=== PATIENT | female | born 1955 | race Caucasian/White ===

== ENCOUNTER → 2018-06-10 | Outpatient (CLI) | payer BC ==
[~2018-06-10] MED LIST: ASPI-1181 PO; CLOP75TA32 PO; FURO20TA4 PO; IBUP-2077 PO; LEVO25TA54 PO; LORA0.5T2 PO; METO-408 PO; MONT10TA24 PO; ROSU10TA27 PO
== END | disposition home or self-care (01) ==
LOC: RAH 12:40
PROVIDERS: ATTEND Family Medicine
DX: M47.816 Spondylosis without myelopathy or radiculopathy, lumbar region (principal); M48.061 Spinal stenosis, lumbar region without neurogenic claudication; M51.26 Other intervertebral disc displacement, lumbar region; M41.86 Other forms of scoliosis, lumbar region
CPT/HCPCS: 72148

== ENCOUNTER 2018-07-29 05:38 | Inpatient (IN) | payer BC | END 2018-07-30 12:43 | disposition home or self-care (01) | LOC: DAHIP 05:38 → 4AH 12:00 | PROC: 01NB0ZZ Release Lumbar Nerve, Open Approach (ICD-10-PCS; principal; 2018-07-29 07:30) | PROC: 0ST20ZZ Resection of Lumbar Vertebral Disc, Open Approach (ICD-10-PCS; 2018-07-29 07:30) | DX: M48.061 Spinal stenosis, lumbar region without neurogenic claudication (principal) ==

== ENCOUNTER → 2019-01-14 | Outpatient (CLI) | payer BC ==
[~2019-01-14] MED LIST changes: +BI EST TP; -CLOP75TA32 PO; +EZET10TA48 PO; -IBUP-2077 PO; +ISOS30TA6 PO; -LORA0.5T2 PO; -METO-408 PO; -MONT10TA24 PO; +PROGESTERONE PO; -ROSU10TA27 PO; +THYR32.4 PO
[2019-01-14 16:09] LABS: CREATININE 0.8 mg/dL (0.5-1.5)
== END | disposition home or self-care (01) ==
LOC: LAB 15:25
PROVIDERS: ATTEND Neurological Surgery
DX: M54.16 Radiculopathy, lumbar region (principal)
CPT/HCPCS: 36415; 82565; 84520

== ENCOUNTER → 2019-02-01 | Outpatient (CLI) | payer BC ==
[~2019-02-01] MED LIST changes: +GADODIAMIDE 10 MMOL/20 ML VIAL IV ONE
== END | disposition home or self-care (01) ==
LOC: RAH 07:32
PROVIDERS: ATTEND Neurological Surgery
DX: M47.26 Other spondylosis with radiculopathy, lumbar region (principal); M41.86 Other forms of scoliosis, lumbar region; M51.26 Other intervertebral disc displacement, lumbar region
CPT/HCPCS: 72158; A9579

== ENCOUNTER → 2019-07-21 | Outpatient (CLI) | payer BC ==
[~2019-07-21] MED LIST changes: -GADODIAMIDE 10 MMOL/20 ML VIAL IV ONE
== END | disposition home or self-care (01) ==
LOC: SHCH 09:48
PROVIDERS: ATTEND Internal Medicine Cardiovascular Disease
DX: I10 Essential (primary) hypertension (principal); I25.10 Atherosclerotic heart disease of native coronary artery without angina pectoris; R60.9 Edema, unspecified
CPT/HCPCS: 93306; 93356; 93970

== ENCOUNTER → 2019-07-26 | Outpatient (CLI) | payer BC ==
[~2019-07-26] MED LIST changes: -ASPI-1181 PO; +ASPI-1443 PO; +REGADENOSON 0.4 MG/5 ML PF SYG IVP SCH
== END | disposition home or self-care (01) ==
LOC: SHCH 07:45
PROVIDERS: ATTEND Internal Medicine Cardiovascular Disease
DX: I10 Essential (primary) hypertension (principal); I25.10 Atherosclerotic heart disease of native coronary artery without angina pectoris
CPT/HCPCS: 78452; 93017; A9500 ×2; J2785; 96374

== ENCOUNTER → 2022-10-15 | Outpatient (CLI) | payer MEDICARE ==
[~2022-10-15] MED LIST changes: -ISOS30TA6 PO; +ISOS30TA92 PO; -REGADENOSON 0.4 MG/5 ML PF SYG IVP SCH
[2022-10-15 16:06] LABS: POTASSIUM 4.1 mmol/L (3.5-5.1)
== END | disposition home or self-care (01) ==
LOC: LAB 11:20
PROVIDERS: ATTEND Physician Assistant
DX: I25.10 Atherosclerotic heart disease of native coronary artery without angina pectoris (principal)
CPT/HCPCS: 36415; 80048; 83735; 83880

== ENCOUNTER → 2022-10-28 | Outpatient (CLI) | payer MEDICARE ==
[~2022-10-28] MED LIST changes: +IOHEXOL 350 MG/ML 100ML INFUS..BTL IV ONE
== END | disposition home or self-care (01) ==
LOC: RAH 09:37
PROVIDERS: ATTEND Internal Medicine Cardiovascular Disease
DX: I25.10 Atherosclerotic heart disease of native coronary artery without angina pectoris (principal); K44.9 Diaphragmatic hernia without obstruction or gangrene; M47.815 Spondylosis without myelopathy or radiculopathy, thoracolumbar region
CPT/HCPCS: 75574; Q9967

== ENCOUNTER → 2022-10-30 | Outpatient (CLI) | payer MEDICARE ==
[~2022-10-30] MED LIST changes: -IOHEXOL 350 MG/ML 100ML INFUS..BTL IV ONE
[2022-10-30 12:47] LABS: CHOLESTEROL 238 mg/dL (<200); HDL CHOLESTEROL 101 mg/dL (35-85); LDL DIRECT 131 mg/dL (0-99); TRIGLYCERIDES 44 mg/dL (30-200)
== END | disposition home or self-care (01) ==
LOC: LAB 08:11
PROVIDERS: ATTEND Internal Medicine Cardiovascular Disease
DX: I25.10 Atherosclerotic heart disease of native coronary artery without angina pectoris (principal)
CPT/HCPCS: 36415; 80061

== ENCOUNTER → 2022-11-18 | Outpatient (CLI) | payer MEDICARE | END | disposition home or self-care (01) | LOC: SHCH 09:31 | PROVIDERS: ATTEND Internal Medicine Cardiovascular Disease | DX: I70.223 Atherosclerosis of native arteries of extremities with rest pain, bilateral legs (principal); R00.1 Bradycardia, unspecified; E78.5 Hyperlipidemia, unspecified | CPT/HCPCS: 93306; 93925 ==

== ENCOUNTER → 2023-07-16 | Outpatient (CLI) | payer MEDICARE ==
[2023-07-16 10:48] LABS: CHOLESTEROL 247 mg/dL (<200); HDL CHOLESTEROL 108 mg/dL (35-85); LDL DIRECT 132 mg/dL (0-99); TRIGLYCERIDES 43 mg/dL (30-200)
== END | disposition home or self-care (01) ==
LOC: LAB 09:29
PROVIDERS: ATTEND Internal Medicine Cardiovascular Disease
DX: I25.10 Atherosclerotic heart disease of native coronary artery without angina pectoris (principal); R94.39 Abnormal result of other cardiovascular function study; Z79.899 Other long term (current) drug therapy
CPT/HCPCS: 36415; 80061

== ENCOUNTER 2024-04-01 09:33 | Emergency (ER) | payer MEDICARE ==
[~2024-04-01] VITALS: Ht 167.6 cm; Wt 102.1 kg
--- NOTE | 2024-04-01 09:40 | ERN ---
General Chief Complaint: Back Pain-No Injury Stated Complaint: CHRONIC BACK PAIN Time Seen by MD: 09:36 History of Present Illness Initial Comments 68-year-old female who presents for back pain beginning yesterday. She reports feeling a pressure and a tearing sensation to her right flank area. She says the pain comes and goes. It does increase with movement. She was unsure if she strained her back or not. She denies any paresthesias or anesthesias. Denies any vomiting diarrhea dysuria or systemic illness. She reports significant pain. Vital signs are stable. Brought in by EMS from home. She does have a surgical history of lumbar spine surgery in 2019. She reports she has not had complications since. 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 She uses a cane to walk. She was ambulatory on scene per EMS. Allergies: Coded Allergies: codeine (Unverified Allergy, Severe, ANAPHYLACTIC SHOCK, 07/23/18) Penicillins (Unverified Allergy, Unknown, ANAPHYLACTIC SHOCK, 07/23/18) propoxyphene (Verified Allergy, Unknown, 07/22/19) Home Meds Reported Medications [Bi-Est Cream] No Conflict Check, 0.5 ML TP AM 07/23/18 Ezetimibe (Ezetimibe) 10 Mg Tablet, 10 MG PO AM, TAB 07/23/18 Thyroid,Pork (Nature-Throid) 32.5 Mg Tablet, 32.5 MG PO AM, TAB 07/23/18 Isosorbide Mononitrate (Isosorbide Mononitrate ER) 30 Mg Tab.er.24h, 30 MG PO AM, TAB 07/23/18 [Progesterone] No Conflict Check, 15 MG PO HS 07/23/18 Aspirin (Aspirin EC) 81 Mg Tablet.dr, 81 MG PO DAILY, TAB 06/13/16 Levothyroxine Sodium (Levothyroxine Sodium) 25 Mcg Tablet, 25 MCG PO DAILY, TAB 06/13/16 Furosemide (Furosemide) 20 Mg Tablet, 20 MG PO DAILY, TAB 06/13/16 ROS Dictation CONSTITUTIONAL: No chills, no fever, no weakness, no diaphoresis, no malaise. HEAD/FACE: No signs of trauma. EENT: No eye pain, no blurred vision, no tearing, no double vision, no ear pain, no ear discharge, no nose pain, no nasal congestion, no throat pain, no throat swelling, no mouth pain. RESPIRATORY: No cough, no orthopnea, no SOB, no stridor, no wheezing. CARDIOVASCULAR: No chest pain, no edema, no palpitations, no syncope. GASTROINTESTINAL/ABDOMINAL: No abdominal pain, no constipation, no diarrhea, no nausea, no vomiting. GENITOURINARY: No abnormal discharge, no dysuria, no frequent urination, no hematuria. No complaints of pain in the genitals. MUSCULOSKELETAL: Right back and flank pain INTEGUMENTARY: No change in color, no change in hair/nails, no dryness, no l esion, no lumps, no rash. NEUROLOGICAL/PSYCH: No anxiety, not depressed, no emotional problem, no headache, no numbness, no pre-existing deficit, no history of seizures, no tremors, no weakness. HEMATOLOGIC/LYMPHATIC: Not anemic, no history of blood clots, no apparent bleeding, no bruising, glands not swollen. All Systems Negative, Except as Noted. Physical Exam Physical Exam Dictation VITAL SIGNS: Reviewed. GENERAL APPEARANCE: Alert, oriented x3, no acute distress, obese. HEAD AND FACE: Non-traumatic. EYES: PERRL, pink conjunctivas, eyelid no trauma, anterior chamber clear. EARS: Pinnas intact and no signs of trauma or erythema. Ear canals clear and no discharge. TMs no erythema. NOSE: No discharge, no bleeding. OROPHARYNX: Mouth normal, teeth no caries, tongue pink. Pharynx clear, no erythema. Tonsils no exudates, no abscesses noted. Mucous membrane moist. NECK: Supple, non-tender, no thyromegaly, no masses, no JVD, no bruits. BREAST: Deferred. CHEST: No tenderness, no crepitus, no paradoxical movement, no retractions. LUNGS: Clear, well-ventilated, symmetric, no rales, no wheezing, no rhonchi, no stridor, good breath sounds bilaterally. HEART: Regular rate, regular rhythm, no murmur, no gallops. VASCULAR: No peripheral edema. ABDOMEN: Soft, positive bowel sounds, nondistended, no guarding, nontender, no rebound, no masses no hepatomegaly, no splenomegaly, no Walker's sign, no hernias. RECTAL: Deferred. GENITAL: Deferred. NEUROLOGICAL: Normal speech, gross motor function intact, gross sensory function intact. MUSCULOSKELETAL: Neck nontender, full range of motion, back nontender, full range of motion. EXTREMITIES: Nontender, full range of motion. SKIN: Color pink, dry, no turgor, no rash, no lacerations, no abrasions, no contusions. LYMPHATICS: Deferred. Results Laboratory and Microbiology Lab and Micro Result Laboratory Tests Test 04/01/24 09:45 04/01/24 12:45 04/01/24 13:50 White Blood Count 6.4 K/uL (4.8-10.8) Red Blood Count 4.53 MIL/uL (4.00-5.50) Hemoglobin 13.4 g/dL (12.0-16.0) Hematocrit 38.4 % (36-48) Mean Corpuscular Volume 84.8 fL (79-99) Mean Corpuscular Hemoglobin 29.6 pg (27.0-33.0) Mean Corpuscular Hemoglobin Concent 34.9 g/dL (32.0-36.0) Red Cell Distribution Width 12.6 % (11.0-15.5) Platelet Count 340 K/uL (130-400) Mean Platelet Volume 9.1 fL (7.5-10.5) Immature Granulocyte % (Auto) 0.2 % (0-1) Neutrophils (%) (Auto) 73.6 % (40.0-77.0) Lymphocytes (%) (Auto) 17.2 % (21.0-51.0) L Monocytes (%) (Auto) 8.0 % (3.0-13.0) Eosinophils (%) (Auto) 0.5 % (0.0-8.0) Basophils (%) (Auto) 0.5 % (0.0-5.0) Neutrophils # (Auto) 4.7 K/uL (1.8-7.7) Lymphocytes # (Auto) 1.1 K/uL (1.0-4.8) Monocytes # (Auto) 0.5 K/uL (0.1-1.0) Eosinophils # (Auto) 0.03 K/uL (0.00-0.70) Basophils # (Auto) 0.03 K/uL (0.00-0.20) Absolute Immature Granulocyte (auto 0.01 K/uL (0-1) Nucleated Red Blood Cells 0.0 % (0.0-0.19) Sodium Level 130 mmol/L (136-145) L Potassium Level 4.2 mmol/L (3.5-5.1) Chloride Level 97 mmol/L (101-111) L Carbon Dioxide Level 22 mmol/L (21-32) Blood Urea Nitrogen 13 mg/dL (7-18) Creatinine 0.9 mg/dL (0.5-1.0) Glomerular Filtration Rate Calc 71 mL/min (>90) Random Glucose 129 mg/dL (70-105) H Total Calcium 9.1 mg/dL (8.5-10.1) Total Creatine Kinase 116 U/L (21-232) 82 U/L (21-232) # Troponin I High Sensitivity 5.4 ng/L (4-50) 7 ng/L (4-50) B-Type Natriuretic Peptide 54 pg/mL (0-100) Urine Color YELLOW (YELLOW) Urine Appearance CLOUDY (CLEAR) H Urine pH 8.5 (5.0-8.0) H Urine Specific [place] 1.016 (1.001-1.031) Urine Protein NEGATIVE mg/dL (NEGATIVE) Urine Glucose (UA) NEGATIVE mg/dL (NEGATIVE) Urine Ketones NEGATIVE mg/dL (NEGATIVE) Urine Occult Blood NEGATIVE (NEGATIVE) Urine Nitrate NEGATIVE (NEGATIVE) Urine Bilirubin NEGATIVE mg/dL (NEGATIVE) Urine Urobilinogen 0.2 mg/dL (0.2-1.0) Urine Leukocyte Esterase NEGATIVE Stacy/uL Urine RBC 2-5 /HPF (0-1) H Urine WBC 11-25 /HPF (0-1) H Urine Squamous Epithelial Cells RARE /HPF (0-2) Urine Other Crystals (Auto) 21 /HPF (None Seen) Urine Bacteria RARE /HPF (None Seen) Urine Yeast FEW /HPF (None Seen) MDM CC: Back pain Historian: Patient Comorbidities: History of kidney infections, ID, stroke, back surgeries Limitations by social determinants of health: None Differential diagnosis: MSK pain, kidney disease, other. Vital signs: Stable, remained stable here in the ER. Labs ( Independently interpreted by me ): CBC is normal. BMP shows mild dehydration otherwise unremarkable. Glucose stable. Creatinine stable. Troponin x2 stable. BNP stable. CK is stable. Urinalysis: Unremarkable. CXR (independently interpreted by me ): Normal. No focal infiltrates, cardiomegaly, or other abnormality. CT abdomen and pelvis without contrast (independently interpreted by me ): No signs of kidney stone or major bony abnormality. Radiology report shows sigmoid diverticulosis without diverticulitis, otherwise normal exam to the right side of the abdomen. Treatment in the ER: Patient received IV Dilaudid for pain control, IV Toradol, Reglan. Re-evaluation. Pain has a improved. Please note there was a delay in care because on the re-evaluation the patient reported that she had some other complaints and was requesting a cardiac workup including troponins EKG and a BNP. She did not have any current chest d iscomfort, but the family was worried that recently she did have some mild dyspnea. I did oblige and get these studies which were all normal. We also waiting on the urinalysis for quite some time. Patient was discharged in stable condition. I do not see any red flags for back pain. There is no neurovascular compromise, no motor dysfunction. No incontinence. No midline tenderness. No other red flags. We will discharge with pain control and recommend PCP follow up. ED Course Orders Procedure Category Date Status Time Cardiac Panel LAB 04/01/24 Complete 09:36 Cbc With Differential LAB 04/01/24 Complete 09:36 Basic Metabolic Panel LAB 04/01/24 Complete 09:36 Urinalysis Profile LAB 04/01/24 Complete 09:36 Hydromorphone 0.5mg PHA 04/01/24 Complete Syg (Dilaudid 0.5mg 10:00 Ketorolac PHA 04/01/24 Complete Tromethamine 15mg/Ml 10:00 Ct Abdomen/Pelvis W/O CT 04/01/24 Resulted Contrast 10:17 Metoclopramide 10 PHA 04/01/24 Complete Mg/2 Ml Vial (Reglan 1 12:00 B-Type Natriuretic LAB 04/01/24 Complete Peptide 12:17 Troponin I High LAB 04/01/24 Complete Sensitivity 12:17 Chest 1vw RAD 04/01/24 Resulted 12:17 12 Lead Ekg Tracing- EKG 04/01/24 Complete Technical 12:17 Creatine Kinase, Total LAB 04/01/24 Complete 12:18 Culture Urine VALERIY 04/01/24 Logged 14:42 Current Medications Medications (Trade) Dose Ordered Sig/Alberto Route PRN Reason Start Time Stop Time Status Last Admin Dose Admin Hydromorphone HCl (DiLAUDid 0.5MG INJ) 0.5 mg ONCE ONCE IVP 04/01/24 10:00 04/01/24 10:01 DC 04/01/24 10:03 Ketorolac Tromethamine (toRADol) 15 mg ONCE ONCE IV 04/01/24 10:00 04/01/24 10:01 DC 04/01/24 10:30 Metoclopramide HCl (regLAN 10MG IV) 10 mg ONCE ONCE IVP 04/01/24 12:00 04/01/24 12:01 DC 04/01/24 12:01 Vital Signs Date Time Temp Pulse Resp B/P (MAP) Pulse Ox O2 Delivery O2 Flow Rate FiO2 04/01/24 14:05 98.1 70 14 142/70 99 Room Air* 0 21 04/01/24 13:00 77 14 146/66 98 Room Air* 0 21 04/01/24 12:00 78 14 148/68 98 Room Air* 0 21 04/01/24 11:00 98.1 71 14 148/68 98 Room Air* 0 21 04/01/24 10:34 98.1 77 14 141/66 98 Room Air* 0 21 04/01/24 10:20 98.1 70 16 150/67 98 Room Air* 0 21 04/01/24 09:34 98.2 83 16 114/48 99 Room Air 0 DX & DISP Disposition: Discharge Departure Impression: Primary Impression: Lower back pain Additional Impression: Mild dehydration Condition: Stable Scripts Meloxicam (Meloxicam) 15 Mg Tablet 15 MG PO DAILY PRN for PAIN for 10 Days, #10 TAB Prov: DOMINIK RANDOLPH DO 04/01/24 Hydrocodone/Acetaminophen (Hydrocodon-Acetaminophen 5-325) 5 Mg-325 Mg Tablet 1 TAB PO Q4HPRN PRN for pain for 5 Days, #30 TAB 0 Refills Prov: DOMINIK RANDOLPH DO 04/01/24 Orphenadrine Citrate (Norflex) 100 Mg Srtab 100 MG PO BID for back spasm, #20 TAB.SR Prov: DOMINIK RANDOLPH DO 04/01/24 Additional Instructions: Your symptoms are consistent with musculoskeletal back pain. Your vital signs have been stable here in the ER. Your lab work (CBC, BMP, CK, troponin x2, BNP, urinalysis) is unremarkable. Your chest x-ray, and the CT scan of the abdomen and pelvis without contrast shows no acute abnormalities. Of note, your cardiac workup (EKG, chest x-ray, troponin, BNP) is unremarkable. You received IV Dilaudid, Toradol, and Reglan here in the ER. I have prescribed multiple pain medications for your back pain. These include meloxicam, which you can take once per day. [place] tabs which you can take up to 3 times a day as needed for severe pain. Norflex, which is a muscle relaxant, which you can take twice per day as needed. I recommend he to use onem-xfj-sciipxc medications such as lidocaine patches and Voltaren gel or capsaicin cream. I have given you a referral to local neurosurgeons. You can call for an appointment. Please return to the emergency department if you have any concerns. Referrals: MARY LEWIS MD (PCP) KEENA WARD MD, BRADLEY H MD WORTH, RYAN E DO Apr 01, 2024 09:40
[2024-04-01 09:57] LABS: BASOPHILS # (AUTO) 0.03 K/uL (0.00-0.20); BASOPHILS % (AUTO) 0.5 % (0.0-5.0); EOSINOPHILS # (AUTO) 0.03 K/uL (0.00-0.70); EOSINOPHILS % (AUTO) 0.5 % (0.0-8.0); HEMATOCRIT 38.4 % (36-48); IMMATURE GRANULOCYTE ABSOLUTE 0.01 K/uL (0-1); LYMPHOCYTES # (AUTO) 1.1 K/uL (1.0-4.8); LYMPHOCYTES % (AUTO) 17.2 % (21.0-51.0); MEAN CORPUSCULAR HEMOGLOBIN 29.6 pg (27.0-33.0); MEAN CORPUSCULAR HGB CONC 34.9 g/dL (32.0-36.0); MEAN CORPUSCULAR VOLUME 84.8 fL (79-99); MONOCYTES # (AUTO) 0.5 K/uL (0.1-1.0); NEUTROPHILS # (AUTO) 4.7 K/uL (1.8-7.7); NEUTROPHILS % (AUTO) 73.6 % (40.0-77.0); PLATELET COUNT (AUTO) 340 K/uL (130-400); RED BLOOD CELL COUNT(AUTO) 4.53 MIL/uL (4.00-5.50); RED CELL DISTRIBUTION WIDTH 12.6 % (11.0-15.5); WHITE BLOOD COUNT (AUTO) 6.4 K/uL (4.8-10.8)
[2024-04-01] MEDS: hydroMORPHone 0.5 MG SYG (0.5MG/0.5ML) IVP ONE (10:03)
[2024-04-01] MEDS: ketOROlac 15MG/ML VIAL (15MG/ML) IV ONE (10:03)
[2024-04-01 10:09] LABS: CREATININE 0.9 mg/dL (0.5-1.0); POTASSIUM 4.2 mmol/L (3.5-5.1)
--- NOTE | 2024-04-01 11:40 | HMCIMG ---
CT ABDOMEN/PELVIS W/O CONTRAST REASON: RT FLANK PAIN COMPARISON: None. FINDINGS: Lung bases are clear. There are no focal liver lesions. There are normal-appearing kidneys.. Spleen and pancreas appear unremarkable. The gallbladder appears normal as well. There is moderate sigmoid diverticulosis without evidence of diverticulitis. Bowel loops appear otherwise unremarkable. This includes normal appearance of the appendix There is no evidence of free fluid or intraperitoneal air. There are no focal fluid collections. Aorta and retroperitoneum appear normal as do pelvic soft tissue structures. The anterior abdominal wall is intact. Osseous structures appear unremarkable. IMPRESSION: 1. Moderate sigmoid diverticulosis without evidence of diverticulitis. 2. Otherwise normal exam including normal appearance of the right kidney and the appendix. CT was performed with one or more following dose reduction techniques: automated exposure control, adjustment of the mA and kv according to patient's size, or use of a iterative reconstruction technique.
[2024-04-01] MEDS: metoCLOPRAmide 10 MG/2 ML VIAL IVP ONE (12:01)
--- NOTE | 2024-04-01 12:26 | EKG ---
[facility] Test Date: 2024-04-01 Test Time: 12:19:12 Pat Name: TRINA VIRAMONTES Department: ED Room: Gender: F Psychotherapist Social Worker: [id number] : 1955 Requested By: ODMINIK RANDOLPH Order Number: [id number] Reading MD: Reji Candelaria Measurements Intervals [place] Rate: 78 P: 58 AR: 152 QRS: 31 QRSD: 91 T: 12 QT: 431 QTc: 492 Interpretive Statements Sinus rhythm Nonspecific T abnrm, anterolateral leads Compared to ECG 06/13/2016 09:15:39 Sinus bradycardia no longer present Electronically Signed On 04-02-2024 17:15:00 COMPLIANCE REVIEW SPECIALIST by Reji Candelaria Please click the below link to view image of tracing.
--- NOTE | 2024-04-01 13:49 | HMCIMG ---
CHEST 1VW REASON: fluid overload COMPARISON: 06/13/2016 FINDINGS: Single view of the chest was obtained. Lungs are clear. Heart size is normal. There is no pulmonary vascular congestion. Mediastinum and bony thorax appear unremarkable. IMPRESSION: 1. Normal single view chest x-ray.
[2024-04-01 14:31] LABS: APPEARANCE,URINE CLOUDY (CLEAR); BILIRUBIN,URINE NEGATIVE (NEGATIVE); COLOR,URINE YELLOW (YELLOW); GLUCOSE, URINE (UA) NEGATIVE (NEGATIVE); KETONES,URINE NEGATIVE (NEGATIVE); LEUKOCYTE ESTERASE ,URINE NEGATIVE Leu/uL (NEGATIVE); NITRATE,URINE NEGATIVE (NEGATIVE); OCCULT BLOOD,URINE NEGATIVE (NEGATIVE); PH,URINE 8.5 (5.0-8.0); PROTEIN,URINE NEGATIVE (NEGATIVE); UROBILINOGEN,URINE 0.2 mg/dL (0.2-1.0)
[2024-04-01 14:35] LABS: ADD UA MICROSCOPIC YES
[2024-04-01 14:41] LABS: BACTERIA,URINE RARE /HPF (None Seen); SQUAMOUS EPITHELIAL CELL,UR RARE /HPF (0-2); UNCLASSIFIED CRYSTAL 21 /HPF (None Seen); YEAST,URINE BUDDING FEW /HPF (None Seen)
[2024-04-01] MEDS ORDERED: MELO-108 PO (15:22)
[2024-04-01] MEDS ORDERED: ORPH100 PO (15:22)
[2024-04-01] MEDS ORDERED: HYDR-4060 PO (15:22)
[2024-04-01 16:00] VITALS: BP 134/64; PULSE 70; RESP 14; TEMP 98.1; O2SAT 99
== END 2024-04-01 16:09 | disposition home or self-care (01) ==
LOC: EDH 09:33
DX: M54.50 Low back pain, unspecified (principal); E86.0 Dehydration; Z79.82 Long term (current) use of aspirin; Z79.890 Hormone replacement therapy; Z79.899 Other long term (current) drug therapy; Z86.73 Personal history of transient ischemic attack (TIA), and cerebral infarction without residual deficits; Z88.0 Allergy status to penicillin; Z88.5 Allergy status to narcotic agent
CPT/HCPCS: 99285; 74176; 96374; 96375; 71045; 82550 ×2; 84484 ×2; 80048; 83880; 85025; 87086; 81001; 36415; 93005; J1885; J1171; J2765

== ENCOUNTER → 2024-08-09 | Outpatient (CLI) | payer MEDICARE ==
[~2024-08-09] MED LIST changes: +HYDR-4060 PO; +MELO-108 PO; +ORPH100 PO
[2024-08-09] MEDS: REGADENOSON 0.4 MG/5 ML PF SYG IVP ONE (15:14)
== END | disposition home or self-care (01) ==
LOC: SHCH 07:46
PROVIDERS: ATTEND Internal Medicine Cardiovascular Disease
DX: R06.00 Dyspnea, unspecified (principal); R07.9 Chest pain, unspecified
CPT/HCPCS: 78452; 93017; J2785; A9500 ×2

== ENCOUNTER 2025-01-06 08:41 | Day surgery (SDC) | payer MEDICARE ==
[2025-01-04 13:41] LABS: IMMATURE GRANULOCYTE ABSOLUTE 0.02 K/uL (0-1); NUCLEATED RED BLOOD CELLS 0.0 % (0.0-0.19); PLATELET COUNT (AUTO) 306 K/uL (130-400); RED BLOOD CELL COUNT(AUTO) 4.25 MIL/uL (4.00-5.50); RED CELL DISTRIBUTION WIDTH 13.1 % (11.0-15.5); WHITE BLOOD COUNT (AUTO) 6.1 K/uL (4.8-10.8)
[2025-01-04 13:49] VITALS: BP 121/69; PULSE 58; RESP 17; TEMP 97.6
[2025-01-04 13:49] LABS: CREATININE 0.9 mg/dL (0.5-1.0); GLOMERULAR FILTR. RATE CALC 70.0 mL/min (>90); GLUCOSE,RANDOM 103.0 mg/dL (70-105); SODIUM SERUM 130.0 mmol/L (136-145); UREA NITROGEN, BLOOD 10.0 mg/dL (7-18)
[2025-01-04 13:53] LABS: INR 0.98 (0.85-1.15)
[2025-01-04 14:04] LABS: APPEARANCE,URINE CLEAR (CLEAR); GLUCOSE, URINE (UA) NEGATIVE (NEGATIVE); LEUKOCYTE ESTERASE ,URINE NEGATIVE Leu/uL (NEGATIVE); NITRATE,URINE NEGATIVE (NEGATIVE); OCCULT BLOOD,URINE NEGATIVE (NEGATIVE)
[2025-01-04 14:19] LABS: ADD UA MICROSCOPIC NO
--- NOTE | 2025-01-04 15:04 | NUR ---
VERIFIED PT REPORTED SHE WAS INSTRUCTED TO STOP CLOPIDOGREL. PER KEDAR SANDY CONSTRUCTION QUALITY CONTROL MANAGER PT TO RESUME CLOPIDOGREL AND PT IS NOT ALLERGIC TO IODINE SHE GETS NAUSEATED PER KEDAR SANDY CONSTRUCTION QUALITY CONTROL MANAGER. PT CONFIRMED SO NO PREMEDS ORDERED.
--- NOTE | 2025-01-04 16:23 | EKG ---
[facility] Test Date: 2025-01-04 Test Time: 14:24:53 Pat Name: TRINA VIRAMONTES Department: [facility] Room: Gender: F Equity Director: [id number] : 1955 Requested By: Kranthi ELIZABETH Order Number: [id number] Reading MD: Megan Rascon Measurements Intervals [place] Rate: 53 P: 62 UT: 151 QRS: 42 QRSD: 91 T: 53 QT: 475 QTc: 446 Interpretive Statements Sinus rhythm Probable left atrial enlargement Compared to ECG 04/01/2024 12:19:12 No significant changes Electronically Signed On 01-05-2025 12:29:22 FRUIT FARMER by Megan Rascon Please click the below link to view image of tracing.
--- NOTE | 2025-01-05 05:32 | HMCIMG ---
EXAM: CR Chest, 1 View. CLINICAL HISTORY: PREOP COMPARISON: None provided. FINDINGS: LUNGS: The lungs show no infiltrate or other acute finding. PLEURAL SPACES: No pleural effusion or pneumothorax. MEDIASTINUM: The cardiomediastinal silhouette is within normal limits. BONES: No acute osseous abnormality. IMPRESSION: No acute cardiopulmonary pathology is evident. /Ridge
--- NOTE | 2025-01-05 12:16 | NUR ---
report reported bmp to stefany horner np. ok to proceed
[2025-01-06] VITALS (10 sets, daily range): BP systolic 103–131; BP diastolic 55–70; PULSE 60–67; RESP 9–17; TEMP 97.3–97.6
[~2025-01-06] VITALS: Ht 162.6 cm; Wt 101.6 kg
[~2025-01-06 08:41] MED LIST changes: +ALBUTEROL IH; -ASPI-1443 PO; -BI EST TP; +CLOP75TA32 PO; +EVOL140S2 SQ; -EZET10TA48 PO; +EZET10TA80 PO; -HYDR-4060 PO; +LEVO100C5 PO; -LEVO25TA54 PO; +LISI5TAB21 PO; -MELO-108 PO; +METO25TA6 PO; +NITR0.4T50 SL; +OMEP20CA12 PO; -ORPH100 PO; -PROGESTERONE PO; +RANO500T6 PO; +SERT-438 PO; -THYR32.4 PO
[2025-01-06] MEDS: 0.9%NACL 1000ML 1,000 ML IV SCH (09:23)
[2025-01-06] MEDS ORDERED: LIDOCAINE HCL 400MG/20ML VIAL ONE (10:26)
[2025-01-06] MEDS ORDERED: SODIUM BICARB 50MEQ 50ML VIAL 50 ML ONE ×2 (10:27→10:28)
[2025-01-06] MEDS ORDERED: HEParin-NS 1,000 UNIT/500 ML 1,000 ML IV ONE (10:27)
[2025-01-06] MEDS ORDERED: NITROGLYCERIN 50MG VIAL ONE ×2 (10:27→10:52)
[2025-01-06] MEDS ORDERED: IOHEXOL 350 MG/ML 100ML INFUS..BTL IV ONE (10:27)
[2025-01-06] MEDS ORDERED: MIDAZOLAM HCL 1 MG/ML 2ML VIAL ONE ×2 (10:48→10:55)
[2025-01-06] MEDS ORDERED: 0.9%NACL 1000ML 1,000 ML IV SCH (11:30)
--- NOTE | 2025-01-06 14:30 | NUR ---
ATTEMPTED TO TAKE OUT AIR FROM TR BAND NOTED SCANT AMOUNT OF OOZING. RE-INFLATED 2ML AIR SITE ASYMPTOMATIC AFTER REINFLATING AIR
--- NOTE | 2025-01-06 15:04 | CCATH ---
PROCEDURE NOTE PROCEDURES: * Left heart catheterization. * Selective diagnostic right and left coronary angiogram. * Conscious sedation for 30 minutes. INDICATIONS: * Recurrent angina. * Abnormal Cardiolite. * Prior history of coronary artery disease. COMPLICATIONS: None. TOTAL CONTRAST: 55 mL. APPROACH: Right radial approach. DESCRIPTION OF PROCEDURE: The patient was taken to the cardiac catheterization lab after appropriate operative consent was signed. She was prepped and draped in the usual fashion. After conscious sedation was administered, the right radial artery region was infiltrated with 2% Xylocaine without epinephrine. A 6-Tamazight sheath was then advanced retrograde fashion modified Seldinger technique. Radial cocktail was administered. At this point, a TIG4 catheter was advanced and positioned in the aortic root over an indwelling wire. This was placed in the left ventricular cavity and left ventricular end diastolic pressure measurement was obtained. Ventriculography was deferred. The patient's ejection fraction was preserved by echocardiography. Pullback revealed no aortic stenosis. The catheter was then engaged in the left main. The left main was large and short. The catheter was favoring perfusion of the circumflex, which was imaged well; however, the LAD was suboptimally imaged with this catheter. The circumflex was a large vessel that gave rise to a large branch OM-1, ongoing circ with a large PDA PLVB system. The circ system was free of disease. There was a tiny intermediate that had an osseous 60% lesion. At this point, the catheter was withdrawn engaged in the right coronary artery. This was imaged identifying a nondominant vessel with no significant stenotic lesions. We then exchanged for an FL 3.5 diagnostic catheter, which was positioned in the aortic root over an indwelling wire. This was engaged in the left main favoring perfusion of the LAD. The LAD was imaged in multiplane. This was a large vessel gave rise to several diagonal. The first large diagonal was quite large. The area of the mid LAD had two segments in which there was evidence of intramyocardial bridging, but no fixed stenotic lesion. At this point, the procedure was completed. The patient tolerated it well. The catheter was withdrawn over an indwelling wire. Radial sheath was removed utilizing radial band. FINAL IMPRESSION: * Minor branch disease in a tiny intermediate. * Intramyocardial mid LAD bridge. * No aortic stenosis. PLAN: Continue medical management. TID: [id number] RECEIPT: [id number]
--- NOTE | 2025-01-06 15:45 | NUR ---
TR BAND REMOVED SITE ASYMPTOMATIC. AREA DRESSED WITH STERILE 2X2 AND TEGADERM WRAPPED WITH COBAND RIGHT RADIAL SITE ASYMPTOMATIC.
--- NOTE | 2025-01-06 15:55 | NUR ---
BOTH PT AND DAUGHTER GIVEN VERBAL AND WRITTEN DISCHARGE INSTRUCTIONS IV REMOVED SITE ASYMPTOMATIC. RIGHT RADIAL SITE ASYMPTOMATIC.
--- NOTE | 2025-01-06 16:05 | NUR ---
PT TAKEN OUT VIA WHEELCHAIR DAUGHTER DRIVING
== END 2025-01-06 16:18 | disposition home or self-care (01) ==
LOC: DAH 08:41
PROVIDERS: ATTEND Internal Medicine Cardiovascular Disease
DX: R94.39 Abnormal result of other cardiovascular function study (principal); I25.118 Atherosclerotic heart disease of native coronary artery with other forms of angina pectoris; I10 Essential (primary) hypertension; E03.9 Hypothyroidism, unspecified; E78.5 Hyperlipidemia, unspecified; R94.31 Abnormal electrocardiogram [ECG] [EKG]; E66.9 Obesity, unspecified; Z88.0 Allergy status to penicillin; Z88.5 Allergy status to narcotic agent; Z86.73 Personal history of transient ischemic attack (TIA), and cerebral infarction without residual deficits; Z68.34 Body mass index [BMI] 34.0-34.9, adult; Z79.01 Long term (current) use of anticoagulants; Z79.899 Other long term (current) drug therapy
CPT/HCPCS: 80048; 83880; 85025; 85610; 85730; 81003; 36415; 71045; 93005; 93458; 99156; 99157 ×2; C1769 ×2; A4649; C1894; J3010; J3490 ×6; J7030; J1644 ×2; J2250 ×2; J2405; Q9967; A4215; A4335; A4222; A4221; A4663; A4216; A4606; Q9965; A4223 ×3; A4554; 96360; 96361